=== PATIENT | female | born 1955 | race Caucasian/White ===

== ENCOUNTER 2021-06-02 21:40 | Emergency (ER) | payer OTHER ==
[~2021-06-02] VITALS: Ht 157.5 cm; Wt 81.2 kg
[2021-06-02] MEDS ORDERED: IBUPROFEN 400 MG TABLET PO ONE (23:00)
[2021-06-02] MEDS ORDERED: IBUPROFEN 400 MG TABLET ONE (23:09)
[2021-06-02 23:41] VITALS: BP 140/90
== END 2021-06-02 23:25 | disposition home or self-care (01) ==
LOC: ER 21:51
DX: S20.212A Contusion of left front wall of thorax, initial encounter (principal); S50.12XA Contusion of left forearm, initial encounter; I10 Essential (primary) hypertension; W01.0XXA Fall on same level from slipping, tripping and stumbling without subsequent striking against object, initial encounter; Y93.01 Activity, walking, marching and hiking; Y92.89 Other specified places as the place of occurrence of the external cause; Y99.8 Other external cause status
CPT/HCPCS: 71045-TC; 73090-TC